=== PATIENT | female | born 1935 | race Hispanic/Latino ===

== ENCOUNTER 2018-07-15 11:16 | Emergency (ER) | payer MEDICARE ==
[2018-07-15 12:41] LABS: BASOPHILS % (AUTO) 0.7 % (0.0-5.0); EOSINOPHILS % (AUTO) 0.4 % (0.0-8.0); HEMATOCRIT 38.9 % (36-48); MEAN CORPUSCULAR HEMOGLOBIN 33.2 pg (27.0-33.0); MEAN CORPUSCULAR HGB CONC 33.6 g/dL (32.0-36.0); MEAN CORPUSCULAR VOLUME 98.9 fL (79-99); MONOCYTES % (AUTO) 5.1 % (3.0-13.0); NEUTROPHILS % (AUTO) 80.8 % (40.0-77.0); NUCLEATED RED BLOOD CELLS 0.1 % (0.0-0.19); PLATELET COUNT (AUTO) 185 K/uL (130-400); RED BLOOD CELL COUNT(AUTO) 3.93 MIL/uL (4.00-5.50); RED CELL DISTRIBUTION WIDTH 14.7 % (11.0-15.5); WHITE BLOOD COUNT (AUTO) 8.1 K/uL (4.8-10.8)
[2018-07-15 12:53] LABS: CREATININE 1.5 mg/dL (0.5-1.5); POTASSIUM 5.9 mmol/L (3.5-5.1)
[2018-07-15 12:58] LABS: BILIRUBIN,TOTAL 0.3 mg/dL (0.2-1.0); TOTAL PROTEIN, SERUM 7.6 g/dL (6.0-8.3)
[2018-07-15 13:05] LABS: CREATINE KINASE, TOTAL 61 U/L (21-232); MYOGLOBIN 64 ng/mL (10-92); TROPONIN I < 0.04 ng/mL (0.00-0.06)
[2018-07-15] MEDS ORDERED: SODIUM CHLORIDE 0.9% 500ML 500 ML IV ONE (13:22)
== END 2018-07-15 17:16 | disposition home or self-care (01) ==
LOC: EDH 11:16
DX: I95.9 Hypotension, unspecified (principal); J44.9 Chronic obstructive pulmonary disease, unspecified; E87.5 Hyperkalemia; Z72.0 Tobacco use
CPT/HCPCS: 36415; 73630; 80053; 82550; 83874; 84484; 85025; 93005; 99285; J7040